=== PATIENT | female | born 1935 | race Asian ===

== ENCOUNTER → 2017-07-05 | Outpatient (CLI) | payer MEDICARE, OTHER | END | disposition home or self-care (01) | LOC: RADPV 09:06 | PROVIDERS: ATTEND Internal Medicine Cardiovascular Disease | DX: J98.11 Atelectasis (principal); I51.7 Cardiomegaly; I70.0 Atherosclerosis of aorta | CPT/HCPCS: 71020 ==

== ENCOUNTER → 2017-08-22 | Outpatient (CLI) | payer MEDICARE, OTHER ==
[2017-08-22 11:12] LABS: BASOPHILS # (AUTO) 0.03 K/uL (0.00-0.20); BASOPHILS % (AUTO) 0.5 % (0.0-2.0); EOSINOPHILS # (AUTO) 0.22 K/uL (0.00-0.70); HEMATOCRIT 40.5 % (36-46); HEMOGLOBIN 13.4 g/dL (12.0-16.0); LYMPHOCYTES # (AUTO) 2.2 K/uL (1.0-4.8); LYMPHOCYTES % (AUTO) 37.1 % (22.0-44.0); MEAN CORPUSCULAR HEMOGLOBIN 28.9 pg (26.0-34.0); MEAN CORPUSCULAR HGB CONC 33.1 G/dL (31.0-37.0); MEAN CORPUSCULAR VOLUME 87 fL (80-100); MONOCYTES # (AUTO) 0.4 K/uL (0.1-1.0); MONOCYTES % (AUTO) 6.8 % (2.0-9.0); NEUTROPHILS # (AUTO) 3.1 K/uL (1.8-7.7); PLATELET COUNT (AUTO) 139 K/uL (150-450); RED BLOOD CELL COUNT(AUTO) 4.64 MIL/uL (4.00-5.20); RED CELL DISTRIBUTION WIDTH 13.8 % (11.5-14.5)
[2017-08-22 11:27] LABS: HEMOGLOBIN A1C 8.6 % (4.5-6.2)
[2017-08-22 11:47] LABS: BILIRUBIN,TOTAL 0.4 mg/dL (0.1-1.0); CALCIUM, TOTAL 9.1 mg/dL (8.8-10.5); CHOL/HDL RATIO 2.8 (3.9-5.7); CREATININE 1.4 mg/dL (0.60-1.30); MAGNESIUM 2.1 mg/dL (1.80-2.40); POTASSIUM 4.4 mmol/L (3.5-5.1); THYROID STIMULATING HORMONE 0.94 uIU/mL (0.36-3.74); TOTAL PROTEIN, SERUM 8.4 g/dL (6.4-8.2)
== END | disposition home or self-care (01) ==
LOC: LABPV 10:23
PROVIDERS: ATTEND Internal Medicine Cardiovascular Disease
DX: I11.0 Hypertensive heart disease with heart failure (principal); I50.9 Heart failure, unspecified; E11.65 Type 2 diabetes mellitus with hyperglycemia; E55.9 Vitamin D deficiency, unspecified
CPT/HCPCS: 82306; 83036; 83735; 84439; 84443